=== PATIENT | male | born 1995 | race African-American/Black ===

== ENCOUNTER 2017-05-25 02:34 | Emergency (ER) | payer OTHER ==
[~2017-05-25] VITALS: Ht 180.3 cm; Wt 74.8 kg
== END 2017-05-25 04:00 | disposition home or self-care (01) ==
LOC: CED 02:34
DX: K08.89 Other specified disorders of teeth and supporting structures (principal); J45.909 Unspecified asthma, uncomplicated; F17.200 Nicotine dependence, unspecified, uncomplicated
CPT/HCPCS: 96372; 99282; J1885

== ENCOUNTER 2017-05-29 07:21 | Emergency (ER) | payer OTHER ==
[~2017-05-29] VITALS: Ht 180.3 cm; Wt 74.8 kg
--- NOTE | ~2017-05-29 | EKG ---
PATIENT: LAINEY SORENSEN UNIT #: [id number] Ventricular Rate: 52 BPM Atrial Rate: 52 BPM P-R Interval: 118 ms QRS Duration: 96 ms Q-T Interval: 368 ms QTC Calculation(Bezet): 342 ms P [place]: 3 degrees Calculated R [place]: 57 degrees Calculated T [place]: 38 degrees Diagnosis Line: Sinus bradycardia Diagnosis Line: Otherwise normal ECG Diagnosis Line: No previous ECGs available Diagnosis Line: Confirmed by MAURICIO BERRY MD ([id number]) on Diagnosis Line: 05/29/2017 11:38:27 AM INTERPRETING MD: JAMAL SEXTON
== END 2017-05-29 08:37 | disposition home or self-care (01) ==
LOC: CED 07:21
DX: K08.89 Other specified disorders of teeth and supporting structures (principal); R03.0 Elevated blood-pressure reading, without diagnosis of hypertension; J45.909 Unspecified asthma, uncomplicated; F17.210 Nicotine dependence, cigarettes, uncomplicated
CPT/HCPCS: 93005; 96372; 99283; J1885